=== PATIENT | female | born 1935 | race Caucasian/White ===

== ENCOUNTER → 2017-04-06 | Outpatient (CLI) | payer OTHER, MEDICARE ==
[~2017-04-06] VITALS: Ht 157.5 cm; Wt 54.4 kg
[~2017-04-06] MED LIST: ANACIN PO; Ecotrin PO; IRON325 M1 PO; MULTIPLE VITAM1 EACH PO; Miralax, Glycolax PO; NEURONTIN300 MG PO; NEXIUM40 MG PO; Neurontin PO; OMEGA-3 FLAXS1000 MG PO; OXYCODONE-APAP1 EAC3 PO; Percocet 5/325,Endoc PO; Senokot S,Pericolace PO; TRAMADOL HCL50 MG PO; Ultram PO; VENTOLIN HFA18 GM IH; ZANTAC150 MG PO; Zetia PO; celeBREX PO
== END | disposition home or self-care (01) ==
LOC: AMB 07:08
PROC: 0DB68ZX Excision of Stomach, Via Natural or Artificial Opening Endoscopic, Diagnostic (ICD-10-PCS; principal; 2017-04-06)
DX: K44.9 Diaphragmatic hernia without obstruction or gangrene (principal); K25.9 Gastric ulcer, unspecified as acute or chronic, without hemorrhage or perforation; Z87.01 Personal history of pneumonia (recurrent); D64.9 Anemia, unspecified; M19.90 Unspecified osteoarthritis, unspecified site; K21.9 Gastro-esophageal reflux disease without esophagitis; R01.1 Cardiac murmur, unspecified; E78.5 Hyperlipidemia, unspecified; M85.80 Other specified disorders of bone density and structure, unspecified site; M54.16 Radiculopathy, lumbar region; M81.0 Age-related osteoporosis without current pathological fracture; Z79.82 Long term (current) use of aspirin; Z80.0 Family history of malignant neoplasm of digestive organs; Z80.3 Family history of malignant neoplasm of breast; Z83.3 Family history of diabetes mellitus; Z83.49 Family history of other endocrine, nutritional and metabolic diseases; Z82.49 Family history of ischemic heart disease and other diseases of the circulatory system; Z82.61 Family history of arthritis
CPT/HCPCS: 88305; 88342 TC; 93005

== ENCOUNTER 2017-05-27 12:25 | Inpatient (IN) | payer OTHER, MEDICARE ==
[~2017-05-27] VITALS: Ht 160 cm; Wt 58.0 kg
[2017-05-27] MEDS ORDERED: ROXICODONE5 MG PO (12:53)
[2017-05-27] MEDS ORDERED: TYLENOL REGULA325 MG PO (12:53)
[2017-05-27] MEDS ORDERED: CELEBREX200 MG PO (12:54)
[2017-05-27] MEDS ORDERED: COLACE100 MG PO (12:54)
[2017-05-27] MEDS ORDERED: XARELTO10 MG PO (12:55)
[2017-05-27] MEDS ORDERED: SENNA8.6 MG PO (12:56)
[2017-05-27 13:00] VITALS: BP 186/82
[2017-05-27 15:46] VITALS: BP 118/57
[2017-05-28 00:01] VITALS: BP 114/57
[2017-05-28 06:37] VITALS: BP 140/62
[2017-05-28 09:31] LABS: HEMATOCRIT 31.6 % (36.0-46.0); MCH 27.1 PG (29.0-34.0); MCV 87.5 FL (83-99); PLATELET COUNT 345 K/uL (156-360); RBC DIS.WIDTH-CV 17.1 % (11.8-14.6); RBC DIS.WIDTH-SD 55.6 % (39-53); RED BLOOD COUNT 3.61 M/uL (3.80-5.20); WHITE BLOOD COUNT 9.3 K/uL (4.1-10.2)
[2017-05-28 09:36] LABS: HEMOGLOBIN 9.8 G/DL (11.9-15.5)
[2017-05-28 09:39] LABS: ALBUMIN 3.3 G/DL (3.2-4.8); ALKALINE PHOSPHATASE 85 IU/L (3-129); ALT (GPT) 11 IU/L (3-49); AST (GOT) 23 IU/L (2-34); CHLORIDE 102 MEQ/L (99-109); CREATININE 0.9 MG/DL (0.6-1.3); GFR ESTIMATE (CALCULATED) > 59 mL/min/; GLUCOSE 108 mg/dL (70-99); POTASSIUM 4.2 MEQ/L (3.7-5.4); SODIUM 137 MEQ/L (136-147); TOTAL BILIRUBIN 0.7 MG/DL (0.0-1.0); TOTAL PROTEIN 6.2 G/DL (6.4-8.3); UREA NITROGEN (BUN) 25 mg/dL (9-23)
[2017-05-28 15:05] VITALS: BP 115/55
[2017-05-29 05:27] VITALS: BP 103/52
[2017-05-29 15:46] VITALS: BP 108/58
[2017-05-30 05:56] VITALS: BP 109/55
[2017-05-30 15:22] VITALS: BP 107/54
[2017-05-30 16:31] LABS: HEMOGLOBIN 8.8 G/DL (11.9-15.5); MCH 26.8 PG (29.0-34.0); MCHC 30.3 G/DL (30.0-36.0); MCV 88.4 FL (83-99); PLATELET COUNT 322 K/uL (156-360); RBC DIS.WIDTH-CV 17.2 % (11.8-14.6); RBC DIS.WIDTH-SD 55.9 % (39-53); RED BLOOD COUNT 3.28 M/uL (3.80-5.20); WHITE BLOOD COUNT 9.4 K/uL (4.1-10.2)
[2017-05-30 16:56] LABS: CHLORIDE 103 MEQ/L (99-109); CREATININE 0.9 MG/DL (0.6-1.3); GFR ESTIMATE (CALCULATED) > 59 mL/min/; GLUCOSE 87 mg/dL (70-99); POTASSIUM 4.3 MEQ/L (3.7-5.4); SODIUM 134 MEQ/L (136-147); UREA NITROGEN (BUN) 26 mg/dL (9-23)
[2017-05-31 04:57] VITALS: BP 92/60
[2017-05-31 16:16] VITALS: BP 129/61
[2017-06-01 06:12] VITALS: BP 99/50
[2017-06-01 06:26] LABS: BASOPHIL (%) 0.6 % (0-1); BASOPHIL COUNT 0.1 K/uL (0-0.1); EOSINOPHIL (%) 6.4 % (0-5); EOSINOPHIL COUNT 0.6 K/uL (0-0.3); HEMOGLOBIN 9.4 G/DL (11.9-15.5); IMMATURE GRANULOCYTE (%) 0.3 % (0.0-0.7); LYMPHOCYTE (%) 15.6 % (15-42); LYMPHOCYTE COUNT 1.5 K/uL (1.0-2.8); MCH 27.3 PG (29.0-34.0); MCHC 31.3 G/DL (30.0-36.0); MCV 87.2 FL (83-99); MONOCYTE (%) 10.9 % (3-12); NEUTROPHIL (%) 66.2 % (45-76); NEUTROPHIL COUNT 6.3 K/uL (1.8-6.4); PLATELET COUNT 386 K/uL (156-360); RBC DIS.WIDTH-CV 17.5 % (11.8-14.6); RBC DIS.WIDTH-SD 55.5 % (39-53); RED BLOOD COUNT 3.44 M/uL (3.80-5.20); WHITE BLOOD COUNT 9.5 K/uL (4.1-10.2)
[2017-06-01 06:50] LABS: ALBUMIN 2.8 G/DL (3.2-4.8); ALKALINE PHOSPHATASE 100 IU/L (3-129); ALT (GPT) 20 IU/L (3-49); AST (GOT) 21 IU/L (2-34); CHLORIDE 107 MEQ/L (99-109); CREATININE 0.9 MG/DL (0.6-1.3); GFR ESTIMATE (CALCULATED) > 59 mL/min/; GLUCOSE 92 mg/dL (70-99); TOTAL BILIRUBIN 0.6 MG/DL (0.0-1.0); TOTAL PROTEIN 5.5 G/DL (6.4-8.3); UREA NITROGEN (BUN) 20 mg/dL (9-23)
[2017-06-01 06:52] LABS: POTASSIUM 5.2 MEQ/L (3.7-5.4); SODIUM 141 MEQ/L (136-147)
[2017-06-01 16:21] VITALS: BP 126/58
[2017-06-02 05:59] VITALS: BP 133/61
[2017-06-02 15:53] VITALS: BP 130/58
[2017-06-03 05:54] VITALS: BP 114/56
[2017-06-03 15:11] VITALS: BP 132/62
[2017-06-04 05:36] VITALS: BP 115/56
[2017-06-04 16:02] VITALS: BP 135/61
[2017-06-05 05:17] VITALS: BP 120/56
[2017-06-05] MEDS ORDERED: FERROUS SULFAT325 MG PO (12:20)
[2017-06-05] MEDS ORDERED: XARELTO10 MG PO (12:20)
[2017-06-05] MEDS ORDERED: GABAPENTIN300 MG PO (12:20)
[2017-06-05] MEDS ORDERED: Milk Of Magnesia,MOM PO (12:20)
[2017-06-05] MEDS ORDERED: CELEBREX200 MG PO (12:20)
[2017-06-05] MEDS ORDERED: ROXICODONE5 MG PO (12:20)
== END 2017-06-05 13:45 | DRG 560 ==
LOC: 3WEST 12:25 → ENPENDDIS 06-05 → 3WEST 06-05 13:45
PROVIDERS: Physical Medicine & Rehabilitation Pain Medicine; Psychiatry & Neurology Neurology
PROC: F07M0ZZ Range of Motion and Joint Mobility Treatment of Musculoskeletal System - Whole Body (ICD-10-PCS; principal; 2017-05-27)
DX: Z47.1 Aftercare following joint replacement surgery (principal); R26.2 Difficulty in walking, not elsewhere classified; G89.18 Other acute postprocedural pain; D62 Acute posthemorrhagic anemia; E87.1 Hypo-osmolality and hyponatremia; E78.00 Pure hypercholesterolemia, unspecified; J44.9 Chronic obstructive pulmonary disease, unspecified; G62.9 Polyneuropathy, unspecified; M47.816 Spondylosis without myelopathy or radiculopathy, lumbar region; M19.012 Primary osteoarthritis, left shoulder; Z96.611 Presence of right artificial shoulder joint; Z96.653 Presence of artificial knee joint, bilateral; Z87.11 Personal history of peptic ulcer disease
CPT/HCPCS: 80048; 80053; 85025; 85027; 97110 GO; 97530 GP

== ENCOUNTER 2017-06-30 13:42 | Emergency (ER) | payer OTHER, MEDICARE ==
[~2017-06-30] VITALS: Ht 157.5 cm; Wt 55.7 kg
[~2017-06-30 13:42] MED LIST changes: +CELEBREX200 MG PO; +COLACE100 MG PO; +FERROUS SULFAT325 MG PO; +GABAPENTIN300 MG PO; +Milk Of Magnesia,MOM PO; +ROXICODONE5 MG PO; +SENNA8.6 MG PO; +TYLENOL REGULA325 MG PO; +XARELTO10 MG PO
[2017-06-30] MEDS ORDERED: ULTRACET1 TABLET PO (16:40)
[2017-06-30 16:57] VITALS: BP 154/73
== END 2017-06-30 16:59 | disposition home or self-care (01) ==
LOC: RME 13:42 → EME 13:42 → RME 16:59
DX: M71.22 Synovial cyst of popliteal space [Baker], left knee (principal); M25.461 Effusion, right knee; J44.9 Chronic obstructive pulmonary disease, unspecified; Z96.653 Presence of artificial knee joint, bilateral; Z88.5 Allergy status to narcotic agent
CPT/HCPCS: 73564; 93971; 99281; 99285